=== PATIENT | male | born 1960 | race Two or more races ===

== ENCOUNTER 2020-05-18 16:23 | Inpatient (IN) | payer OTHER ==
[~2020-05-18] VITALS: Ht 170.2 cm; Wt 104.6 kg
[2020-05-18] MEDS ORDERED: ACETAMINOPHEN 325 MG TAB PO ONE ×2 (16:32→16:45)
[2020-05-18] MEDS ORDERED: IBUPROFEN 600 MG TAB PO ONE (18:00)
[2020-05-18 19:04] LABS: Basophils # (auto) 0 10 ^3/uL (0-0.2); Basophils % (auto) 0.3 % (0.0-2.0); Eosinophils # (auto) 0 10 ^3/uL (0-0.8); Eosinophils % (auto) 0.1 % (0.0-7.0); Hemoglobin 15.8 g/dL (13.5-17.5); Lymphocytes # (auto) 0.4 10 ^3/uL (0.4-5.4); Lymphocytes % (auto) 13.3 % (10.0-50.0); Mean Corpuscular Hemoglobin 29.4 pg (28.0-32.0); Mean Corpuscular Hgb Conc. 33.6 g/dL (32.0-36.0); Mean Corpuscular Volume 87.4 fL (80.0-100.0); Monocytes # (auto) 0.5 10 ^3/uL (0-1.3); Monocytes % (auto) 14.5 % (0.0-12.0); Neutrophils # (auto) 2.4 10 ^3/uL (1.6-8.6); Neutrophils % (auto) 71.8 % (37.0-80.0); Nucleated Red Blood Cells % 0.1 %; Platelet Count (auto) 91 10^3/uL (140-450); Red Blood Cells 5.38 10^6/uL (4.5-5.90); White Blood Cell 3.4 10^3/uL (4.4-10.8)
[2020-05-18] MEDS ORDERED: SODIUM CHLORIDE 0.9% 1,000 ML IV ONE (19:15)
[2020-05-18 19:18] LABS: Albumin 3.7 g/dL (3.4-5.0); BUN/Creatinine Ratio 9.1; Potassium 4.2 mmol/L (3.5-5.1)
[2020-05-18 19:20] LABS: Bilirubin, Total 0.6 mg/dL (0.2-1.0); Total Protein 7.4 g/dL (6.4-8.2)
[2020-05-19] MEDS ORDERED: DOXYCYCLINE 100MG/250ML 250 ML IV ONE (00:15)
[2020-05-19] MEDS ORDERED: DexAMETHasone SOD PHOS 10MG/1ML VIAL INJ IV ONE (00:15)
[2020-05-19] MEDS ORDERED: MORPHINE SULF INJ 2 MG/ML SYRINGE 1ML IV PRN (02:30)
[2020-05-19] MEDS ORDERED: ONDANSETRON HCL 4 MG/2 ML VIAL IV PRN (02:30)
[2020-05-19] MEDS ORDERED: NITROGLYCERIN 0.4 MG SL TAB SL PRN (02:30)
[2020-05-19 02:39] VITALS: BP 106/50
[2020-05-19 03:30] LABS: Magnesium 2.3 mg/dL (1.6-2.6)
[2020-05-19 03:39] LABS: CRP High Sensitivity 1.6 mg/dL (< 0.3)
[2020-05-19] MEDS ORDERED: SILD100T73 PO (06:04)
[2020-05-19] MEDS ORDERED: FIN5T PO (06:04)
[2020-05-19] MEDS ORDERED: ROSU20TA14 PO (06:04)
[2020-05-19] MEDS ORDERED: TRAZ50TA2 PO (06:04)
[2020-05-19] MEDS ORDERED: TER5T PO (06:04)
[2020-05-19] MEDS: ALBUTEROL SULF HFA 90MCG INH 200DOSE IN SCH ×4 (07:18→22:04)
[2020-05-19 09:04] VITALS: BP 123/59
[2020-05-19] MEDS: ACETAMINOPHEN 325 MG TAB PO PRN (09:20)
[2020-05-19] MEDS ORDERED: ENOXAPARIN SOD 40 MG/0.4 ML SYRINGE SC SCH (10:00)
[2020-05-19] MEDS ORDERED: FAMOTIDINE 20 MG TAB PO SCH (10:00)
[2020-05-19] MEDS: DOXYCYCLINE 100MG/250ML 250 ML IV SCH (11:38)
[2020-05-19] MEDS: ZINC SULFATE 220mg CAP or TAB PO SCH (11:38)
[2020-05-19] MEDS: DexAMETHasone SOD PHOS 10MG/1ML VIAL INJ IV SCH (11:38)
[2020-05-19] MEDS: CHOLECALCIFEROL (VITD3) 2,000 UNIT CAP PO SCH (11:39)
[2020-05-19] MEDS: ASCORBIC ACID 1,000 MG TAB PO SCH (11:39)
[2020-05-19 12:50] VITALS: BP 107/64
[2020-05-19] MEDS ORDERED: DEXTROSE (50%) 50ML SYRG IV PRN (14:00)
[2020-05-19] MEDS ORDERED: FUROSEMIDE 20 MG/2 ML VIAL IV ONE (14:00)
[2020-05-19] MEDS ORDERED: IOHEXOL 350 MG/ML 100ML IJ ONE (14:40)
[2020-05-19] MEDS: HYDROcodone-ACET 5/325MG TAB PO PRN ×2 (15:34→21:58)
[2020-05-19 16:39] VITALS: BP 117/77
[2020-05-19] MEDS: ACCU-CHEK COMFORT CURVE STRIP VI SCH (16:40)
[2020-05-19] MEDS: InsuLIN REG 1unit/0.01ml Soln (100units/ml) SC SCH (16:41)
[2020-05-19] MEDS: TEMAZEPAM 15 MG CAP PO PRN (21:58)
[2020-05-19 22:00] VITALS: BP 110/84
[2020-05-19] MEDS: BUDESONIDE (INHALATION) 180 MCG IH IN SCH (22:03)
[2020-05-20] MEDS: ENOXAPARIN SOD 100 MG/1 ML SYRINGE SC SCH ×3 (00:08→21:37)
[2020-05-20] MEDS: ACCU-CHEK COMFORT CURVE STRIP VI SCH ×5 (00:08→21:37)
[2020-05-20] MEDS: DOXYCYCLINE 100MG/250ML 250 ML IV SCH ×2 (00:09→11:14)
[2020-05-20] MEDS: InsuLIN REG 1unit/0.01ml Soln (100units/ml) SC SCH ×5 (00:10→21:41)
[2020-05-20 05:00] VITALS: BP 108/64
[2020-05-20] MEDS: ACETAMINOPHEN 325 MG TAB PO PRN ×2 (05:21→17:53)
[2020-05-20] MEDS: BUDESONIDE (INHALATION) 180 MCG IH IN SCH ×2 (07:05→22:06)
[2020-05-20] MEDS: ALBUTEROL SULF HFA 90MCG INH 200DOSE IN SCH ×3 (07:05→22:05)
[2020-05-20 09:00] VITALS: BP 108/65
[2020-05-20 09:43] LABS: Basophils # (auto) 0 10 ^3/uL (0-0.2); Basophils % (auto) 0.7 % (0.0-2.0); Eosinophils # (auto) 0 10 ^3/uL (0-0.8); Hematocrit 44.3 % (41.0-53.0); Lymphocytes # (auto) 0.8 10 ^3/uL (0.4-5.4); Lymphocytes % (auto) 16.3 % (10.0-50.0); Mean Corpuscular Hemoglobin 29.5 pg (28.0-32.0); Mean Corpuscular Hgb Conc. 33.8 g/dL (32.0-36.0); Mean Corpuscular Volume 87.4 fL (80.0-100.0); Monocytes # (auto) 0.5 10 ^3/uL (0-1.3); Monocytes % (auto) 9.8 % (0.0-12.0); Neutrophils # (auto) 3.7 10 ^3/uL (1.6-8.6); Neutrophils % (auto) 73.2 % (37.0-80.0); Nucleated Red Blood Cells % 0.1 %; Platelet Count (auto) 86 10^3/uL (140-450); Red Blood Cells 5.07 10^6/uL (4.5-5.90); Red Cell Distribution Width 13.1 % (11.8-14.3)
[2020-05-20 10:03] LABS: Potassium 3.8 mmol/L (3.5-5.1)
[2020-05-20 10:09] LABS: Cholesterol 137 mg/dL (< 200); HDL Cholesterol 31 mg/dL (40-59); LDL Cholesterol 109 mg/dL (< 100); Triglycerides 119 mg/dL (< 150)
[2020-05-20 10:12] LABS: Albumin 3.1 g/dL (3.4-5.0); BUN/Creatinine Ratio 14.3; Bilirubin, Total 0.4 mg/dL (0.2-1.0); Calcium 8.5 mg/dL (8.5-10.1); Total Protein 6.5 g/dL (6.4-8.2)
[2020-05-20] MEDS: DexAMETHasone SOD PHOS 10MG/1ML VIAL INJ IV SCH (11:13)
[2020-05-20] MEDS: FUROSEMIDE 20 MG/2 ML VIAL IV SCH (11:13)
[2020-05-20] MEDS: CHOLECALCIFEROL (VITD3) 2,000 UNIT CAP PO SCH (11:14)
[2020-05-20] MEDS: PANTOPRAZOLE 40 MG TAB PO SCH (11:14)
[2020-05-20] MEDS: ASCORBIC ACID 1,000 MG TAB PO SCH (11:14)
[2020-05-20] MEDS: ZINC SULFATE 220mg CAP or TAB PO SCH (11:14)
[2020-05-20] MEDS: POTASSIUM CHL 10 Meq TABLET PO SCH (11:14)
[2020-05-20] MEDS: HYDROcodone-ACET 5/325MG TAB PO PRN ×2 (11:39→21:38)
[2020-05-20 13:08] VITALS: BP 119/73
[2020-05-20] MEDS ORDERED: guaiFENesin-DM 100/10mg/5ml SYR PO PRN (14:15)
[2020-05-20 17:00] VITALS: BP 116/64
[2020-05-20] MEDS ORDERED: REMDESIVIR 200 MG in NS 210ml LOADING DOSE ADULT IV ONE (17:00)
[2020-05-20] MEDS: PIPERACILLIN-TAZOB 3.375GM 100 ML IV SCH (18:45)
[2020-05-20] MEDS: TEMAZEPAM 15 MG CAP PO PRN (21:38)
[2020-05-20 22:00] VITALS: BP 107/68
[2020-05-21] VITALS (8 sets, daily range): BP systolic 89–113; BP diastolic 7–73
[2020-05-21] MEDS: PIPERACILLIN-TAZOB 3.375GM 100 ML IV SCH ×5 (00:48→23:57)
[2020-05-21] MEDS: ACCU-CHEK COMFORT CURVE STRIP VI SCH ×4 (06:16→21:14)
[2020-05-21] MEDS: InsuLIN REG 1unit/0.01ml Soln (100units/ml) SC SCH ×4 (06:17→21:12)
[2020-05-21] MEDS: ALBUTEROL SULF HFA 90MCG INH 200DOSE IN SCH ×3 (07:37→22:33)
[2020-05-21] MEDS: BUDESONIDE (INHALATION) 180 MCG IH IN SCH ×2 (07:37→22:33)
[2020-05-21] MEDS: ACETAMINOPHEN 325 MG TAB PO PRN (08:00)
[2020-05-21] MEDS: HYDROcodone-ACET 5/325MG TAB PO PRN ×2 (08:42→16:31)
[2020-05-21] MEDS: FUROSEMIDE 20 MG/2 ML VIAL IV SCH (10:00)
[2020-05-21] MEDS: DexAMETHasone SOD PHOS 10MG/1ML VIAL INJ IV SCH (10:35)
[2020-05-21] MEDS: POTASSIUM CHL 10 Meq TABLET PO SCH (10:36)
[2020-05-21] MEDS: PANTOPRAZOLE 40 MG TAB PO SCH (10:36)
[2020-05-21] MEDS: ZINC SULFATE 220mg CAP or TAB PO SCH (10:36)
[2020-05-21] MEDS: ENOXAPARIN SOD 100 MG/1 ML SYRINGE SC SCH ×2 (10:37→21:14)
[2020-05-21] MEDS: ASCORBIC ACID 1,000 MG TAB PO SCH (10:37)
[2020-05-21] MEDS: CHOLECALCIFEROL (VITD3) 2,000 UNIT CAP PO SCH (10:37)
[2020-05-21 11:20] LABS: Albumin 3.1 g/dL (3.4-5.0); Calcium 8.7 mg/dL (8.5-10.1); Potassium 3.6 mmol/L (3.5-5.1)
[2020-05-21 11:23] LABS: BUN/Creatinine Ratio 12.4; Bilirubin, Total 0.5 mg/dL (0.2-1.0); Total Protein 6.5 g/dL (6.4-8.2)
[2020-05-21] MEDS: REMDESIVIR 100mg in NS 230ml DAILYx4DAYS (NO VENT) IV SCH (18:39)
[2020-05-21] MEDS: TEMAZEPAM 15 MG CAP PO PRN (21:15)
[2020-05-21] MEDS ORDERED: SODIUM CHLORIDE 0.9% 1,000 ML IV ONE (22:15)
[2020-05-22 00:52] VITALS: BP 89/50
[2020-05-22 05:00] VITALS: BP 88/50
[2020-05-22] MEDS: InsuLIN REG 1unit/0.01ml Soln (100units/ml) SC SCH ×4 (06:11→20:53)
[2020-05-22] MEDS: ACCU-CHEK COMFORT CURVE STRIP VI SCH ×4 (06:11→20:54)
[2020-05-22] MEDS: PIPERACILLIN-TAZOB 3.375GM 100 ML IV SCH ×4 (06:11→23:01)
[2020-05-22] MEDS: HYDROcodone-ACET 5/325MG TAB PO PRN (06:17)
[2020-05-22] MEDS: BUDESONIDE (INHALATION) 180 MCG IH IN SCH ×2 (06:52→23:19)
[2020-05-22] MEDS: ALBUTEROL SULF HFA 90MCG INH 200DOSE IN SCH ×3 (06:52→23:19)
[2020-05-22 07:17] LABS: Hematocrit 42.6 % (41.0-53.0); Hemoglobin 14.6 g/dL (13.5-17.5); Mean Corpuscular Hgb Conc. 34.4 g/dL (32.0-36.0); Mean Corpuscular Volume 87.2 fL (80.0-100.0); Platelet Count (auto) 111 10^3/uL (140-450); Red Blood Cells 4.88 10^6/uL (4.5-5.90); Red Cell Distribution Width 12.6 % (11.8-14.3); White Blood Cell 3.9 10^3/uL (4.4-10.8)
[2020-05-22 07:19] LABS: Basophils % (manual) 0 (0.0-2.0); Blast Cells 0; Eosinophils % (manual) 0 (0-7); Metamyelocytes % 0; Myelocytes % 0; Promyelocytes % 0; Reactive Lymphocytes 0
[2020-05-22 08:00] VITALS: BP 98/70
[2020-05-22 08:01] LABS: Albumin 2.8 g/dL (3.4-5.0); BUN/Creatinine Ratio 17.1; Bilirubin, Total 0.4 mg/dL (0.2-1.0); Calcium 8.7 mg/dL (8.5-10.1); Total Protein 6.1 g/dL (6.4-8.2)
[2020-05-22 09:24] LABS: Band Neutrophils % (manual) 3; Lymphocytes % (manual) 16 (10.0-50.0); Monocytes % (manual) 16 (0-12)
[2020-05-22] MEDS: DexAMETHasone SOD PHOS 10MG/1ML VIAL INJ IV SCH (10:10)
[2020-05-22] MEDS: ZINC SULFATE 220mg CAP or TAB PO SCH (10:10)
[2020-05-22] MEDS: FUROSEMIDE 20 MG/2 ML VIAL IV SCH (10:10)
[2020-05-22] MEDS: POTASSIUM CHL 10 Meq TABLET PO SCH (10:11)
[2020-05-22] MEDS: CHOLECALCIFEROL (VITD3) 2,000 UNIT CAP PO SCH (10:11)
[2020-05-22] MEDS: ASCORBIC ACID 1,000 MG TAB PO SCH (10:11)
[2020-05-22] MEDS: PANTOPRAZOLE 40 MG TAB PO SCH (10:11)
[2020-05-22] MEDS: ENOXAPARIN SOD 100 MG/1 ML SYRINGE SC SCH ×2 (10:11→20:54)
[2020-05-22 12:00] VITALS: BP 105/58
[2020-05-22 17:00] VITALS: BP 94/58
[2020-05-22] MEDS: REMDESIVIR 100mg in NS 230ml DAILYx4DAYS (NO VENT) IV SCH (17:16)
[2020-05-22] MEDS: TEMAZEPAM 15 MG CAP PO PRN (20:55)
[2020-05-22 21:44] VITALS: BP 93/49
[2020-05-23 05:16] VITALS: BP 97/60
[2020-05-23] MEDS: ACCU-CHEK COMFORT CURVE STRIP VI SCH ×4 (05:27→21:50)
[2020-05-23] MEDS: InsuLIN REG 1unit/0.01ml Soln (100units/ml) SC SCH ×4 (05:27→21:50)
[2020-05-23] MEDS: PIPERACILLIN-TAZOB 3.375GM 100 ML IV SCH ×4 (05:28→23:49)
[2020-05-23] MEDS: HYDROcodone-ACET 5/325MG TAB PO PRN ×2 (05:29→20:43)
[2020-05-23] MEDS: ALBUTEROL SULF HFA 90MCG INH 200DOSE IN SCH ×3 (06:48→23:08)
[2020-05-23] MEDS: BUDESONIDE (INHALATION) 180 MCG IH IN SCH ×2 (06:48→23:08)
[2020-05-23 08:00] VITALS: BP 99/53
[2020-05-23 08:26] LABS: Basophils # (auto) 0 10 ^3/uL (0-0.2); Basophils % (auto) 0.1 % (0.0-2.0); Eosinophils # (auto) 0 10 ^3/uL (0-0.8); Eosinophils % (auto) 0.2 % (0.0-7.0); Hematocrit 45.8 % (41.0-53.0); Hemoglobin 15.7 g/dL (13.5-17.5); Lymphocytes # (auto) 1.3 10 ^3/uL (0.4-5.4); Lymphocytes % (auto) 28.4 % (10.0-50.0); Mean Corpuscular Hemoglobin 29.8 pg (28.0-32.0); Mean Corpuscular Hgb Conc. 34.2 g/dL (32.0-36.0); Mean Corpuscular Volume 87.1 fL (80.0-100.0); Monocytes # (auto) 0.8 10 ^3/uL (0-1.3); Monocytes % (auto) 17.9 % (0.0-12.0); Neutrophils # (auto) 2.4 10 ^3/uL (1.6-8.6); Neutrophils % (auto) 53.4 % (37.0-80.0); Platelet Count (auto) 154 10^3/uL (140-450); Red Blood Cells 5.25 10^6/uL (4.5-5.90); White Blood Cell 4.6 10^3/uL (4.4-10.8)
[2020-05-23 08:35] LABS: Calcium 9.3 mg/dL (8.5-10.1); Potassium 3.8 mmol/L (3.5-5.1)
[2020-05-23 08:48] LABS: BUN/Creatinine Ratio 17.9; Bilirubin, Total 0.7 mg/dL (0.2-1.0); CRP High Sensitivity 1.31 mg/dL (< 0.3); Total Protein 6.5 g/dL (6.4-8.2)
[2020-05-23] MEDS: FUROSEMIDE 20 MG/2 ML VIAL IV SCH (10:07)
[2020-05-23] MEDS: ZINC SULFATE 220mg CAP or TAB PO SCH (10:07)
[2020-05-23] MEDS: POTASSIUM CHL 10 Meq TABLET PO SCH (10:07)
[2020-05-23] MEDS: ASCORBIC ACID 1,000 MG TAB PO SCH (10:07)
[2020-05-23] MEDS: DexAMETHasone SOD PHOS 10MG/1ML VIAL INJ IV SCH (10:07)
[2020-05-23] MEDS: PANTOPRAZOLE 40 MG TAB PO SCH (10:07)
[2020-05-23] MEDS: CHOLECALCIFEROL (VITD3) 2,000 UNIT CAP PO SCH (10:08)
[2020-05-23] MEDS: ENOXAPARIN SOD 100 MG/1 ML SYRINGE SC SCH ×2 (10:08→21:51)
[2020-05-23 12:00] VITALS: BP 90/67
[2020-05-23 16:00] VITALS: BP 87/52
[2020-05-23] MEDS: REMDESIVIR 100mg in NS 230ml DAILYx4DAYS (NO VENT) IV SCH (18:04)
[2020-05-23 22:00] VITALS: BP 101/59
[2020-05-24] MEDS: ACCU-CHEK COMFORT CURVE STRIP VI SCH ×3 (05:15→17:05)
[2020-05-24] MEDS: InsuLIN REG 1unit/0.01ml Soln (100units/ml) SC SCH ×3 (05:15→17:06)
[2020-05-24] MEDS: PIPERACILLIN-TAZOB 3.375GM 100 ML IV SCH ×3 (05:16→18:00)
[2020-05-24 05:23] VITALS: BP 95/44
[2020-05-24] MEDS: BUDESONIDE (INHALATION) 180 MCG IH IN SCH (07:22)
[2020-05-24] MEDS: ALBUTEROL SULF HFA 90MCG INH 200DOSE IN SCH ×2 (07:22→14:35)
[2020-05-24 08:10] LABS: BUN/Creatinine Ratio 19.8; Calcium 9.4 mg/dL (8.5-10.1)
[2020-05-24 08:56] VITALS: BP 91/65
[2020-05-24] MEDS: DexAMETHasone SOD PHOS 10MG/1ML VIAL INJ IV SCH (09:26)
[2020-05-24] MEDS: ZINC SULFATE 220mg CAP or TAB PO SCH (09:28)
[2020-05-24] MEDS: ENOXAPARIN SOD 100 MG/1 ML SYRINGE SC SCH (09:29)
[2020-05-24] MEDS: ASCORBIC ACID 1,000 MG TAB PO SCH (09:29)
[2020-05-24] MEDS: PANTOPRAZOLE 40 MG TAB PO SCH (09:29)
[2020-05-24] MEDS: CHOLECALCIFEROL (VITD3) 2,000 UNIT CAP PO SCH (09:29)
[2020-05-24] MEDS: HYDROcodone-ACET 5/325MG TAB PO PRN (09:40)
[2020-05-24] MEDS ORDERED: METH4PAK PO (12:48)
[2020-05-24] MEDS ORDERED: ASCO10003 PO (12:48)
[2020-05-24] MEDS ORDERED: DOXY-286 PO (12:48)
[2020-05-24] MEDS ORDERED: PANT40TA2 PO (12:48)
[2020-05-24] MEDS ORDERED: ZINC220T6 PO (12:48)
[2020-05-24 13:03] VITALS: BP 102/66
[2020-05-24] MEDS ORDERED: REMDESIVIR 100mg in NS 230ml DAILYx4DAYS (NO VENT) IV SCH (16:00)
[2020-05-24 17:00] VITALS: BP 97/61
[2020-05-24 17:17] VITALS: BP 102/62
== END 2020-05-24 19:00 | disposition home or self-care (01) | DRG 871 ==
LOC: ER 16:23 → TELE 16:24 → TELE-EAST 05-19 04:15
PROVIDERS: ADMIT Nurse Practitioner; ATTEND Internal Medicine
PROC: XW033E5 Introduction of Remdesivir Anti-infective into Peripheral Vein, Percutaneous Approach, New Technology Group 5 (ICD-10-PCS; 2020-05-20)
PROC: XW13325 Transfusion of Convalescent Plasma (Nonautologous) into Peripheral Vein, Percutaneous Approach, New Technology Group 5 (ICD-10-PCS; principal; 2020-05-21)
DX: A41.89 Other specified sepsis (principal); U07.1 COVID-19; J12.89 Other viral pneumonia; J96.01 Acute respiratory failure with hypoxia; E87.1 Hypo-osmolality and hyponatremia; J98.11 Atelectasis; N40.0 Benign prostatic hyperplasia without lower urinary tract symptoms; E66.9 Obesity, unspecified; D69.6 Thrombocytopenia, unspecified; E78.5 Hyperlipidemia, unspecified; R73.03 Prediabetes; Z68.36 Body mass index [BMI] 36.0-36.9, adult; Z79.899 Other long term (current) drug therapy; I95.89 Other hypotension
CPT/HCPCS: 36415; 71045; 71275; 80048; 80053; 80061; 80320; 82728; 82962; 83036; 83605; 83615; 83735; 83880; 84443; 85007; 85025; 85027; 85379; 86141; 86850; 86900; 86901; 87040; 87070; 87426; 87804; 87880; 94640; 96365; 96375; G0378; J1100; J1815; J2405; J2543; J3490